=== PATIENT | male | born 1970 | race Two or more races ===

== ENCOUNTER 2021-08-06 06:00 | Day surgery (SDC) | payer OTHER ==
[~2021-08-06 06:00] MED LIST: FINGOLIMOD PO; [UNRECOGNIZED DRUG - OTHER]; [UNRECOGNIZED DRUG - OTHER] PO
== END 2021-08-06 10:20 | disposition home or self-care (01) ==
LOC: CIR.AMB 06:00
PROVIDERS: ATTEND Surgery Surgery of the Hand
DX: D21.11 Benign neoplasm of connective and other soft tissue of right upper limb, including shoulder (principal); D48.1 Neoplasm of uncertain behavior of connective and other soft tissue; Z20.822 Contact with and (suspected) exposure to COVID-19